=== PATIENT | male | born 2000 | race African-American/Black ===

== ENCOUNTER 2019-09-09 14:21 | Emergency (ER) | payer SELFPAY ==
[~2019-09-09] VITALS: Ht 185.4 cm; Wt 63.6 kg
[2019-09-09 14:26] VITALS: BP 151/64
[2019-09-09] MEDS ORDERED: ONDANSETRON ODT 4 MG TAB.RAPDIS. PO ONE (14:45)
[2019-09-09] MEDS ORDERED: FAMOTIDINE 20 MG TABLET. PO ONE (14:45)
--- NOTE | 2019-09-09 14:47 | PHYS DOC ---
Past Medical History Past Medical History: No Pertinent History (PANCHO SAMUEL) Past Surgical History: No Surgical History (PANCHO SAMUEL) Smoking Status: Never Smoker Alcohol Use: None Drug Use: None (PANCHO SAMUEL) Adult General Chief Complaint Chief Complaint: MULTIPLE COMPLAINTS HPI HPI Patient is a 18 year old M who is here with vague complaint of "I feel like I can't eat". He reports intermittent abd pain, but none currently. He denies vomiting, diarrhea or constipation. He reports that he does smoke THC regularly and usually that helps him with hunger but lately he just has no appetite and feels like when he eats he doesn't want to eat anymore. Pt does report history of anxiety and PTSD but denies SI/HI. He states he works alot and his work does not provide him with insurance and so he does not have a PCP. I spoke with pt in length about what the emergency room can offer him. Discussed that we would check and acute abd and give him a zofran and pepcid and his mother would like him checked for the flu so we will do that, but otherwise will refer him to a PCP. (PANCHO SAMUEL) Review of Systems Review of Systems Constitutional: Denies fever or chills HENT: Denies nasal congestion or sore throat Respiratory: Denies cough or shortness of breath Cardiovascular: Denies chest pain GI: Denies vomiting or diarrhea. Reports intermittent abd pain. : Denies dysuria Musculoskeletal: Denies back pain or joint pain. Reports muscle aches. Integument: Denies rash or skin lesions Neurologic: Denies headache, focal weakness or sensory changes All other systems were reviewed and found to be within normal limits, except as documented in this note. (PANCHO SAMUEL) Current Medications Current Medications Current Medications Medications (Trade) Dose Ordered Sig/Emerald Start Time Stop Time Status Last Admin Dose Admin Famotidine (Pepcid) 20 mg 1X ONCE 09/09/19 14:45 09/09/19 14:46 DC 09/09/19 15:01 20 MG Ondansetron HCl (Zofran Odt) 4 mg 1X ONCE 09/09/19 14:45 09/09/19 14:46 DC 09/09/19 15:01 4 MG (LLUVIA MORIN DO) Allergies Allergies Allergies Coded Allergies Type Severity Reaction Last Updated Verified No Known Drug Allergies 10/17/14 No (LLUVIA MORIN DO) Physical Exam Physical Exam Constitutional: Well developed, well nourished, no acute distress, non-toxic appearance. HENT: Normocephalic, atraumatic, bilateral external ears normal, oropharynx moist, no oral exudates, nose normal. Neck: Normal range of motion, no tenderness, supple, no stridor. Cardiovascular:Heart rate regular rhythm, no murmur Lungs & Thorax: Bilateral breath sounds clear to auscultation Abdomen: Bowel sounds normal, soft, no tenderness, no masses, no pulsatile m asses. Skin: Warm, dry, no erythema, no rash. Back: No tenderness, no CVA tenderness. Extremities: No tenderness, no cyanosis, no clubbing, ROM intact, no edema. Neurologic: Alert and oriented X 3, normal motor function, normal sensory function, no focal deficits noted. Psychologic: Affect normal, judgement normal, mood normal. (PANCHO SAMUEL) Current Patient Data Vital Signs Vital Signs Date Time Temp Pulse Resp B/P (MAP) Pulse Ox O2 Delivery O2 Flow Rate FiO2 09/09/19 14:26 98.6 63 16 151/64 (93) 97 Room Air 98.6 (LLUVIA MORIN DO) Lab Values Laboratory Tests Test 09/09/19 14:44 Influenza Type A Antigen Negative (NEGATIVE) Influenza Type B Antigen Negative (NEGATIVE) (LLUVIA MORIN DO) Lab Values Laboratory Tests Test 09/09/19 14:44 Influenza Type A Antigen Negative (NEGATIVE) Influenza Type B Antigen Negative (NEGATIVE) (PANCHO SAMUEL) EKG EKG [] (PANCHO SAMUEL) Radiology/Procedures Radiology/Procedures [] (PANCHO SAMUEL) Course & Med Decision Making Course & Med Decision Making Flu neg and AAS neg for acute finding. Pt feeling better after Zofran and Pepcid. Discussed with pt that this could be a viral syndrome, this could be an ulcer, but not entirely clear why pt is experiencing this anorexia at this time. He appears nontoxic and stable vitals and exam at this time. Pt encouraged to eat bland diet and push fluids and follow up with PCP. He does not currently have a PCP, so a list of resources were given to him. (PANCHO SAMUEL) Dragon Disclaimer Dragon Disclaimer This electronic medical record was generated, in whole or in part, using a voice recognition dictation system. (PANCHO SAMUEL) Departure Departure Impression: Primary Impression: Viral syndrome Additional Impression: Anorexia Disposition: 01 HOME, SELF-CARE Condition: STABLE Referrals: NO PCP (PCP) Patient Instructions: Anorexia Nervosa, Viral Syndrome Additional Instructions: We do not currently know what is causing your symptoms. Your vitals and exam are stable but you may require further testing. Call the numbers provided to establish a primary care doctor. Eat a bland diet and avoid food that is spicy or hard to digest. Push fluids and rest. Avoid marijuana, since in some individuals it can cause stomach upset. Return if symptoms worsen at anytime. Scripts Famotidine (PEPCID) 20 Mg Tablet 20 MG PO HS for 30 Days, #30 TAB Prov: PANCHO SAMUEL 09/09/19 Ondansetron (ONDANSETRON ODT) 4 Mg Tab.rapdis 4 MG PO BID PRN for NAUSEA/VOMITING, #15 TAB Prov: PANCHO SAMUEL 09/09/19 Attending Signature Attending Signature I have reviewed the PA/FELTER TENNIS BALLS's note and plan of care. I was available for consultation as needed during the patient's visit in the emergency department. I agree with the clinical impression, plan, and disposition. (LLUVIA MORIN DO) Problem Qualifiers PANCHO SAMUEL Sep 09, 2019 14:47 LLUVIA MORIN DO Sep 09, 2019 20:39
--- NOTE | 2019-09-09 15:07 | RAD ---
Examination: ACUTE ABDOMEN SERIES History: Intermittent abdominal pain. Loss of appetite. Comparison/Correlation: None Findings: Supine and upright views of the abdomen obtained. Adjacent basilar clear. No suspicious abdominal calcifications. No bowel obstruction. Bony structures unremarkable. Frontal view of the chest was obtained. Heart size and pulmonary vasculature are normal. No infiltrate, pneumothorax, or pleural effusion. Impression: No suspicious process. Electronically signed by: Naif Coelho MD (09/09/2019 3:05 PM) [id number]
[2019-09-09] MEDS ORDERED: FAMO-63 PO (15:28)
[2019-09-09] MEDS ORDERED: ONDA4TAB12 PO (15:28)
[2019-09-09 15:57] LABS: INFLUENZA A PATIENT NEGATIVE (NEGATIVE); INFLUENZA B PATIENT NEGATIVE (NEGATIVE)
== END 2019-09-09 16:01 | disposition home or self-care (01) ==
LOC: ER 14:21
DX: B34.9 Viral infection, unspecified (principal); R63.0 Anorexia; R10.9 Unspecified abdominal pain; F41.9 Anxiety disorder, unspecified; F43.12 Post-traumatic stress disorder, chronic
CPT/HCPCS: 74022; 87804; 99284; Q0162

== ENCOUNTER 2021-02-09 11:24 | Emergency (ER) | payer SELFPAY ==
[~2021-02-09] VITALS: Ht 185.4 cm; Wt 72.0 kg
[~2021-02-09 11:24] MED LIST: FAMO-63 PO; ONDA4TAB12 PO
[2021-02-09 11:41] VITALS: BP 149/89
[2021-02-09 13:21] LABS: BILIRUBIN,URINE NEGATIVE (NEG); CLARITY,URINE CLEAR; COLOR,URINE YELLOW; NITRITE,URINE NEGATIVE (NEG); PROTEIN,URINE NEGATIVE (NEG-TRACE); UROBILINOGEN,URINE 0.2 mg/dL (0.2 mg/dL)
[2021-02-09 13:28] LABS: BACTERIA,URINE 0 /HPF (0-FEW); BARBITURATES NEG (NEG); BENZODIAZEPINES POS (NEG); CANNABINOIDS POS (NEG); COCAINE NEG (NEG); METHADONE NEG (NEG); OPIATES NEG (NEG); PHENCYCLIDINE NEG (NEG); RBC,URINE 0 /HPF (0-2); WBC,URINE OCC /HPF (0-4)
[2021-02-09 13:29] LABS: AMPHETAMINE/METHAMPHETAMINE NEG (NEG)
[2021-02-09] MEDS ORDERED: HYDR50CA2 PO (14:20)
--- NOTE | 2021-02-09 14:20 | PHYS DOC ---
Past Medical History Past Medical History: Other Additional Past Medical Histor: PTSD,CHRONIC BACK PAIN Past Surgical History: No Surgical History Smoking Status: Current Every Day Smoker Additional Information: "I VAPE" Alcohol Use: None Drug Use: None General Adult EDM: Chief Complaint: Insomnia HPI: HPI: Patient is a 20 year old male presents emergency department complaining of insomnia for 5 days. Patient reports seen ghosts for the past 2 years. Patient states he knows he should see a psychiatrist for this but he does not have any insurance and cannot afford it. Patient reports he was last seen at [facility] 3 weeks ago and was given a prescription for Percocet and Keflex for insect bites. Patient reports he could not afford the Keflex medication but was able to sheepskin pickler his Percocet. Patient reports he is out of Percocet and would like more. Patient denies headaches, chest pain, shortness of breath, rash to his skin, recent fever or chills. Patient reports he has not had the COVID-19 virus vaccination series. Patient denies homicidal or suicidal ideation. Patient denies any other physical complaints or physical concerns. Patient reports he does smoke cigarettes, denies alcohol or illicit drug use. Review of Systems: Review of Systems: 14 body systems of review of systems have been reviewed. See HPI for pertinent positives and negative responses, otherwise all other systems are negative, nonpertinent or noncontributory. Constitutional: Negative except as outlined in HPI above. Skin: Negative except as outlined in HPI above. Eyes: Negative except as outlined in HPI above. HENT: Negative except as outlined in HPI above. Respiratory: Negative except as outlined in HPI above. Cardiovascular: Negative except as outlined in HPI above. GI: Negative except as outlined in HPI above. : Negative except as outlined in HPI above. Musculoskeletal: Negative except as outlined in HPI above. Integument: Negative except as outlined in HPI above. Neurologic: Negative except as outlined in HPI above. Endocrine: Negative except as outlined in HPI above. Lymphatic: Negative except as outlined in HPI above. Psychiatric: Negative except as outlined in HPI above. Heart Score: C/O Chest Pain: No Risk Factors: Risk Factors: DM, Current or recent (<one month) smoker, HTN, HLP, family history of CAD, obesity. Risk Scores: Score 0 - 3: 2.5% MACE over next 6 weeks - Discharge Home Score 4 - 6: 20.3% MACE over next 6 weeks - Admit for Clinical Observation Score 7 - 10: 72.7% MACE over next 6 weeks - Early Invasive Strategies Allergies: Allergies: Allergies Coded Allergies Type Severity Reaction Last Updated Verified No Known Drug Allergies 10/17/14 No Physical Exam: PE: Constitutional: Well developed, well nourished, no acute distress, non-toxic appearance. 20-year-old male in no apparent distress. HENT: Normocephalic, atraumatic. Eyes: Conjunctiva normal, no discharge. Neck: Normal range of motion, no stridor. Cardiovascular: No cyanosis appreciated, distal cap refill less than 2 seconds. Lungs & Thorax: Patient is in no respiratory distress, no audible adventitious lung sounds appreciated. Abdomen: Nontender, no abnormalities noted. Skin: Warm, dry, no erythema, no rash. Well-healing skin abrasions on knees and bilateral tib-fib area, no signs of infectious process appreciated Back: No tenderness, no deformities. Extremities: No tenderness, no cyanosis, no clubbing, ROM intact, no edema. Neurologic: Alert and oriented X 3, normal motor function, normal sensory function, no focal deficits noted. Psychologic: Affect manic with flight of ideas, judgement abnormal related to choosing Percocet over antibiotic for infection control, mood normal. Current Patient Data: Labs: Laboratory Tests Test 02/09/21 13:05 Urine Collection Type Unknown Urine Color Yellow Urine Clarity Clear Urine pH 8.0 (<5.0-8.0) Urine Specific [place] 1.015 (1.000-1.030) Urine Protein Negative mg/dL (NEG-TRACE) Urine Glucose (UA) Negative mg/dL (NEG) Urine Ketones (Stick) Negative mg/dL (NEG) Urine Blood Negative (NEG) Urine Nitrite Negative (NEG) Urine Bilirubin Negative (NEG) Urine Urobilinogen Dipstick 0.2 mg/dL (0.2 mg/dL) Urine Leukocyte Esterase Negative (NEG) Urine RBC 0 /HPF (0-2) Urine WBC Occ /HPF (0-4) Urine Bacteria 0 /HPF (0-FEW) Urine Mucus Slight /LPF Urine Opiates Screen Neg (NEG) Urine Methadone Screen Neg (NEG) Urine Barbiturates Neg (NEG) Urine Phencyclidine Screen Neg (NEG) Urine Amphetamine/Methamphetamine Neg (NEG) Urine Benzodiazepines Screen Pos (NEG) Urine Cocaine Screen Neg (NEG) Urine Cannabinoids Screen Pos (NEG) Urine Ethyl Alcohol Neg (NEG) Vital Signs: Vital Signs Date Time Temp Pulse Resp B/P (MAP) Pulse Ox O2 Delivery O2 Flow Rate FiO2 02/09/21 11:41 87 12 149/89 (93) 100 Room Air EKG: EKG: [] Radiology/Procedures: Radiology/Procedures: [] Course & Med Decision Making: Course & Med Decision Making Pertinent Labs and Imaging studies reviewed. (See chart for details) 20-year-old male, vital signs reviewed, presents to the emergency department complaining of insomnia for the past 5 days, patient is also complaining of a 2- year history of visual hallucinations, reporting seeing ghosts of his family members. Physical examination unremarkable however patient is exhibiting a flight of ideas with manic state, while patient does deny homicidal or suicidal ideation will consult PAT steam and power superintendent for evaluation. Will order CBC, CMP, urinalysis assay, urine drug screen. PAT steam and power superintendent Roney at bedside to interview patient. PAT steam and power superintendent Roney states he does not require CBC or CMP for psychiatric placement or consideration, however does require urinalysis drug screen. Patient's urine was not infected, his drug screen did show positive for benzodiazepines and marijuana use. Patient continues to deny this illicit drug use. Patient reports his benzodiazepine detection in his urine is most likely from the Percocet he was taken. Discussed with patient that Percocet is not opioid and out of benzodiazepine, patient continues to deny using any illicit drugs. PAT steam and power superintendent Roney has interviewed patient, deemed him stable to be discharged for outpatient RSI follow-up. Patient is amenable to this plan. Discussed PAT steam and power superintendent Roney's recommendations with patient, patient states he will follow up with RSI later today or probably tomorrow. Thank you for visiting our Emergency Department. It was a pleasure taking care of you today in the emergency department and we appreciate you trusting us with your care. If any additional problems come up don't hesitate to return to visit us. Please follow up with your primary care provider so they can plan additional care if needed and know about the problem that you had. If symptoms worsen come back to the Emergency Department. Any concerning symptoms that start such as chest pain, shortness of air, weakness or numbness on one side of the body, running high fevers or any other concerning symptoms return to the ER. Valerie Disclaimer: Valerie Disclaimer: This electronic medical record was generated, in whole or in part, using a voice recognition dictation system. Departure Departure Impression: Primary Impression: Insomnia Qualified Codes: G47.00 - Insomnia, unspecified Additional Impressions: Visual hallucinations Illicit drug use Disposition: HOME / SELF CARE / HOMELESS Condition: GOOD Referrals: NO PCP (PCP) Patient Instructions: Insomnia Additional Instructions: You were seen today in the emergency department for insomnia and visual hallucinations. A urine drug screen was performed, it showed positive for benzodiazepines and marijuana use, I strongly encourage you to stop use of illicit drugs. I am prescribing you a medication called hydroxyzine for your insomnia problems, you may take 1 to 2 tablets 30 minutes prior to going to bed at night to assist with sleep. Please follow-up with the RSI group for your ongoing visual hallucinations as you and the PAT steam and power superintendent Roney discussed at length. Thank you for visiting our Emergency Department. It was a pleasure taking care of you today in the emergency department and we appreciate you trusting us with your care. If any additional problems come up don't hesitate to return to visit us. Please follow up with your primary care provider so they can plan additional care if needed and know about the problem that you had. If symptoms worsen come back to the Emergency Department. Any concerning symptoms that start such as chest pain, shortness of air, weakness or numbness on one side of the body, running high fevers or any other concerning symptoms return to the ER. EMERGENCY DEPARTMENT GENERAL DISCHARGE INSTRUCTIONS Thank you for coming to [facility] Emergency Department (ED) today and trusting us with you care. We trust that you had a positive experience in our Emergency Department. If you wish to speak to the department management, you may call the Director at [phone]. YOUR FOLLOW UP INSTRUCTIONS ARE FOLLOWS: 1. Do you have a private Doctor? If you do not have a private doctor, please ask for a resource list of physicians or clinics that may be able to assist you with follow up care. 2. The Emergency Physicain has interpreted your x-rays. The X-Ray specialist will also review them. If there is a change in the findings, you will be notified in 48 hours when at all possible. 3. A lab test or culture has been done, your results will be reviewed and you will be notified if you need a change in treatment. ADDITIONAL INSTRUCTIONS AND INFORMATION: 1. Your care today has been supervised by a physician who is specially trained in emergency care. Many problems require more than one evaluation for a complete diagnosis and treatment. We recommend that you schedule your follow up appointment as recommended to ensure complete treatment of you illness or injury. If you are unable to obtain follow up care and continue to have a problem, or if your condition worsens, we recommend that you return to the ED. 2. We are not able to safely determine your condition over the phone nor are we able to give sound medical advice over the phone. For these safety reasons, if you call for medical advice we will ask you to come to the ED for further evaluation. 3. If you have any questions regarding these discharge instructions please call the ED at [phone]. SAFETY INFORMATION: In the interest of safety, wellness, and injury prevention; we encourage you to wear your sealbelt, if you smoke; quite smoking, and we encourage family to use a protective helmet for bicycling and other sporting events that present an increased risk for head injury. IF YOUR SYMPTOMS WORSEN OR NEW SYMPTOMS DEVELOP, OR YOU HAVE CONCERNS ABOUT YOUR CONDITION; OR IF YOUR CONDITION WORSENS WHILE YOU ARE WAITING FOR YOUR FOLLOW UP APPOINTMENT; EITHER CONTACT YOUR PRIMARY CARE DOCTOR, THE PHYSICIAN WHOSE NAME AND NUMBER YOU WERE GIVEN, OR RETURN TO THE ED IMMEDIATELY. Scripts Hydroxyzine Pamoate (HYDROXYZINE PAMOATE) 50 Mg Capsule 50 MG PO HS for insomnia, #10 CAP 0 Refills Please take 1 or 2 tablets 30 minutes before bedtime to assist with sleeping and insomnia. Prov: LLUVIA ZARATE APRN 02/09/21 LLUVIA ZARATE APRN Feb 09, 2021 14:20
== END 2021-02-09 14:35 | disposition home or self-care (01) ==
LOC: ER 11:24
DX: G47.00 Insomnia, unspecified (principal); R44.1 Visual hallucinations; G89.29 Other chronic pain; F12.10 Cannabis abuse, uncomplicated; F13.10 Sedative, hypnotic or anxiolytic abuse, uncomplicated; F17.200 Nicotine dependence, unspecified, uncomplicated
CPT/HCPCS: 80307; 81001; 99283

== ENCOUNTER 2021-10-22 12:26 | Emergency (ER) | payer SELFPAY ==
[~2021-10-22] VITALS: Ht 185.4 cm; Wt 80.0 kg
[~2021-10-22 12:26] MED LIST changes: +HYDR50CA2 PO
[2021-10-22 12:45] VITALS: BP 143/67
--- NOTE | 2021-10-22 13:26 | PHYS DOC ---
Past Medical History Past Medical History: Other Additional Past Medical Histor: PTSD,CHRONIC BACK PAIN Past Surgical History: No Surgical History Smoking Status: Current Every Day Smoker Alcohol Use: None Drug Use: None General Adult EDM: Chief Complaint: UPPER EXTREMITY PAIN HPI: HPI: Patient is a 21-year-old male presents to the emergency department requesting a work excuse. Patient states he experienced pain to his left wrist while he was at work yesterday and had to leave early, states that he no longer has wrist discomfort, denies any trauma to his left wrist, states he requires a work note to go back to work today. Patient denies recent fever or chills, denies other physical complaints or physical concerns. Review of Systems: Review of Systems: 14 body systems of review of systems have been reviewed. See HPI for pertinent positives and negative responses, otherwise all other systems are negative, nonpertinent or noncontributory. Constitutional: Negative except as outlined in HPI above. Skin: Negative except as outlined in HPI above. Eyes: Negative except as outlined in HPI above. HENT: Negative except as outlined in HPI above. Respiratory: Negative except as outlined in HPI above. Cardiovascular: Negative except as outlined in HPI above. GI: Negative except as outlined in HPI above. : Negative except as outlined in HPI above. Musculoskeletal: Negative except as outlined in HPI above. Integument: Negative except as outlined in HPI above. Neurologic: Negative except as outlined in HPI above. Endocrine: Negative except as outlined in HPI above. Lymphatic: Negative except as outlined in HPI above. Psychiatric: Negative except as outlined in HPI above. Heart Score: C/O Chest Pain: No Risk Factors: Risk Factors: DM, Current or recent (<one month) smoker, HTN, HLP, family history of CAD, obesity. Risk Scores: Score 0 - 3: 2.5% MACE over next 6 weeks - Discharge Home Score 4 - 6: 20.3% MACE over next 6 weeks - Admit for Clinical Observation Score 7 - 10: 72.7% MACE over next 6 weeks - Early Invasive Strategies Allergies: Allergies: Allergies Coded Allergies Type Severity Reaction Last Updated Verified No Known Drug Allergies 10/17/14 No Physical Exam: PE: Constitutional: Well developed, well nourished, no acute distress, non-toxic appearance. 21-year-old male in no apparent distress. HENT: Normocephalic, atraumatic. Eyes: Conjunctiva normal, no discharge. Neck: Normal range of motion, no stridor. Cardiovascular: No cyanosis appreciated, distal cap refill less than 2 seconds. Lungs & Thorax: Patient is in no respiratory distress, no audible adventitious lung sounds appreciated. Abdomen: Nontender, no abnormalities noted. Skin: Warm, dry, no erythema, no rash. Back: No tenderness, no deformities. Extremities: No tenderness, no cyanosis, no clubbing, ROM intact, no edema. Bilateral upper extremities full AROM/PROM of all joints, distal cap refill equal bilaterally less than 2 seconds, +2 radial pulses equal bilateral upper extremities. Neurologic: Alert and oriented X 3, normal motor function, normal sensory function, no focal deficits noted. Psychologic: Affect normal, judgement normal, mood normal. Current Patient Data: Vital Signs: Vital Signs Date Time Temp Pulse Resp B/P (MAP) Pulse Ox O2 Delivery O2 Flow Rate FiO2 10/22/21 12:45 98.2 65 16 143/67 (92) 100 Room Air 98.2 EKG: EKG: [] Radiology/Procedures: Radiology/Procedures: [] Course & Med Decision Making: Course & Med Decision Making Pertinent Labs and Imaging studies reviewed. (See chart for details) 21-year-old male, vital signs reviewed, presents emergency department asking for work excuse to return to work. Physical examination is unremarkable, patient was provided a work excuse to return to work today. Dragon Disclaimer: Dragon Disclaimer: This electronic medical record was generated, in whole or in part, using a voice recognition dictation system. Departure Departure Impression: Primary Impression: Encounter to obtain excuse from work Disposition: 01 HOME / SELF CARE / HOMELESS Condition: GOOD Referrals: NO PCP (PCP) Patient Instructions: Form - Excuse from Work, School, or Physical Activity Additional Instructions: You were seen today to obtain a note to return to work. I have provided this for you. You may return to work today with no restrictions. please follow-up with your primary care physician for any further healthcare needs. Thank you for visiting our Emergency Department. It was a pleasure taking care of you today in the emergency department and we appreciate you trusting us with your care. If any additional problems come up don't hesitate to return to visit us. Please follow up with your primary care provider so they can plan additional care if needed and know about the problem that you had. If symptoms worsen come back to the Emergency Department. Any concerning symptoms that start such as chest pain, shortness of air, weakness or numbness on one side of the body, running high fevers or any other concerning symptoms return to the ER. Alex [facility] [address] [place] [address] [facility] [address] [facility] [place] [address] [facility] [address] [facility] [place] [address] [facility] [address] [place] [address] [facility] [address] [place] [address] [facility] [address] [place] [address] [address] [place] [address] [place] [address] [facility] [address] [place] [address] [facility] [address] [place] [address] [facility] [address] [place] [address] LLUVIA ZARATE APRN Oct 22, 2021 13:26
== END 2021-10-22 13:05 | disposition home or self-care (01) ==
LOC: ER 12:26
DX: Z02.79 Encounter for issue of other medical certificate (principal); M25.532 Pain in left wrist; G89.29 Other chronic pain; F17.200 Nicotine dependence, unspecified, uncomplicated
CPT/HCPCS: 99281